=== PATIENT | female | born 1995 | race Caucasian/White ===

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

== ENCOUNTER 2018-04-13 01:17 | Emergency (ER) | END 2018-04-13 01:27 | disposition left against medical advice (07) ==

== ENCOUNTER 2019-04-12 14:50 | Emergency (ER) | payer OTHER ==
[~2019-04-12] VITALS: Ht 170.2 cm; Wt 81.1 kg
[~2019-04-12 14:50] MED LIST changes: -AMO500 PO; +AMOX500C2 PO; -HYDR-3011 PO; +HYDR-4011 PO; +HYDR-843 PO; -HYDR-906 PO; +IBUP-1561 PO; -IBUP400T22 PO; +NITR-58 PO
[2019-04-12 14:55] VITALS: BP 129/58; PULSE 101; RESP 18; Ht 170.2 cm; Wt 81.1 kg
== END 2019-04-12 15:45 | disposition home or self-care (01) ==
LOC: FTE 14:50
DX: N39.0 Urinary tract infection, site not specified (principal); R10.2 Pelvic and perineal pain
CPT/HCPCS: 81003; 81025; Z7502; 99283